=== PATIENT | female | born 1960 | race African-American/Black ===

== ENCOUNTER 2019-07-23 22:37 | Emergency (ER) | payer OTHER ==
[~2019-07-23] VITALS: Ht 165.1 cm; Wt 48.1 kg
--- NOTE | ~2019-07-23 | EKG ---
[facility] [place] [address] ELECTROCARDIOGRAM REPORT Name: MATYRIZWANA Room #: REG [facility]#: [id number] Admission: 07/23/19 Attend Phys: Discharge: Date of : 60 Report #: [id number] THIS REPORT FOR: cc: YONI - No family physician/PCP FAM - No family physician/PCP Hermelinda Shen MD ~ THIS REPORT FOR: //name// [facility] ED Test Date: 2019-07-23 Test Time: 23:55:41 Pat Name: RIZWANA RUTLEDGE Department: Room: Gender: F [employer]: jony : 1960 Requested By: Edu Atwodo Order Number: [id number] MD: Measurements Intervals [place] Rate: 79 P: 74 CT: 152 QRS: -52 QRSD: 107 T: 48 QT: 386 QTc: 443 Interpretive Statements Pacemaker spikes or artifacts Sinus rhythm Left atrial enlargement RSR' in V1 or V2, probably normal variant Left ventricular hypertrophy Probable inferior infarct, acute Artifact in lead(s) II,III,aVR,aVL,aVF,V1,V2,V3,V4,V5,V6 No previous ECG available for comparison [email or web address] By: [id number] Ep[place]any [place], [place] /EPI
[2019-07-23 22:38] VITALS: BP 172/99
[2019-07-23] MEDS ORDERED: LIDODERM1 EACH TOP (23:52)
== END 2019-07-24 00:12 | disposition home or self-care (01) ==
LOC: ER 22:37
DX: S70.02XA Contusion of left hip, initial encounter (principal); S70.12XA Contusion of left thigh, initial encounter; S80.02XA Contusion of left knee, initial encounter; E78.5 Hyperlipidemia, unspecified; I10 Essential (primary) hypertension; R45.6 Violent behavior; M41.9 Scoliosis, unspecified; J42 Unspecified chronic bronchitis; F10.10 Alcohol abuse, uncomplicated; Z88.0 Allergy status to penicillin; Y04.8XXA Assault by other bodily force, initial encounter; Y93.89 Activity, other specified; Y92.89 Other specified places as the place of occurrence of the external cause; Y99.8 Other external cause status